=== PATIENT | male | born 1990 | race Two or more races ===

== ENCOUNTER 2018-11-10 11:52 | Emergency (ER) | payer SELFPAY ==
[~2018-11-10] VITALS: Ht 182.9 cm; Wt 72.6 kg
[2018-11-10 11:57] VITALS: BP 132/80
[2018-11-10] MEDS ORDERED: NKM (12:00)
--- NOTE | 2018-11-10 12:05 | NUR ---
ED Nurse Note: Patient walked in ED c/o right hand pain and swelling, states he hit a wall yesterday. Patient aaox4, No open wounds noted, right hand noted with immobilizer.
--- NOTE | 2018-11-10 12:25 | NUR ---
ED Nurse Note: Xray at bedside at this time.
--- NOTE | 2018-11-10 12:40 | NUR ---
ED Nurse Note: splint applied on the affected area by Yi, pipe organ technician
--- NOTE | 2018-11-10 12:42 | Emergency Room Report ---
History of Present Illness General Chief Complaint: Upper Extremity Injury Source: Patient Present Illness HPI 28-year-old male with no significant past medical history here complaining of pain and swelling of the right hand after punching a wall yesterday. Patient is rating the pain 10 out of 10 on the hypothenar aspect of his right hand without radiation. The pain is constant denies any tingling or numbness. Has not taken medication for pain. Patient has no motor or sensory deficits. Denies all other injuries, chest pain, shortness of breath, palpitation, abdominal pain, nausea vomiting. 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 Allergies: Coded Allergies: No Known Allergies (Unverified , 11/10/18) Patient History Past Medical History: see triage record Past Surgical History: unable to obtain Pertinent Family History: none Immunizations: UTD Reviewed Nursing Documentation: PMH: Agreed; PSxH: Agreed Nursing Documentation-PMH Past Medical History: No Stated History Review of Systems All Other Systems: negative except mentioned in HPI Physical Exam Vital Signs Date Time Temp Pulse Resp B/P (MAP) Pulse Ox O2 Delivery O2 Flow Rate FiO2 11/10/18 11:57 98.1 72 19 132/80 (97) 98 Room Air Sp02 EP Interpretation: reviewed, normal General Appearance: normal inspection, well appearing, no apparent distress Head: normocephalic, atraumatic Eyes: bilateral eye normal inspection, bilateral eye PERRL ENT: normal ENT inspection, normal pharynx Neck: normal inspection, supple Respiratory: normal inspection, lungs clear, no rhonchi, no wheezing Cardiovascular #1: normal inspection, regular rate, rhythm, no murmur, normal capillary refill Cardiovascular #2: 2+ radial (R), 2+ radial (L) Gastrointestinal: normal inspection, soft Rectal: deferred Musculoskeletal: back normal, swelling - Right hand on hypothenar side, tender - right fifth metacarpal Neurologic: normal inspection, alert, oriented x3 Psychiatric: normal inspection, judgement/insight normal Skin: other - eccymosis right fifth metacarpal Lymphatic: normal inspection, no adenopathy Procedures Splinting Splinting : Consent: Verbal Splint: ulnar Pre-Proc Neuro Vasc Exam: normal Post-Proc Neuro Vasc Exam: normal Patient Tolerated: Well Complications: None Medical Decision Making PA Attestation All my diagnosis and treatment plans were reviewed ad discussed with my supervising physician Dr. James Diagnostic Impression: Primary Impression: Boxers fracture ER Course 28-year-old male with no significant past medical history here complaining of pain and swelling of the right hand after punching a wall yesterday. Patient is rating the pain 10 out of 10 on the hypothenar aspect of his right hand without radiation. The pain is constant denies any tingling or numbness. Has not taken medication for pain. Patient has no motor or sensory deficits. Denies all other injuries, chest pain, shortness of breath, palpitation, abdominal pain, nausea vomiting. 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 Ddx considered but are not limited to: Hand sprain, hand sprain, hand fracture Vital signs: are WNL, pt. is afebrile H&PE are most consistent with : Right boxer's fracture ORDERS: Hand x-ray, Tylenol 3, naproxen ED INTERVENTIONS: Splinting DISCHARGE: At this time pt. is stable for d/c to home. Will provide printed patient care instructions, and any necessary prescriptions. Care plan and follow up instructions have been discussed with the patient prior to discharge. Splint was ordered, extremity was vascularly and neurovascularly intact after splint was applied. pt advised to follow up with pcp and further imaging may be needed. Follow-up with primary care provider for referral to vendor management specialist for possible casting and further assessment take medication as directed keep affected area elevated avoid strenuous physical activity Other X-Ray Diagnostic Results Other X-Ray Diagnostic Results : X-Ray ordered: Right hand # of Views/Limited Vs Complete: 3 View Indication: Pain EP Interpretation: Yes PA Xray: Interpretation reviewed, by supervising MD, and agrees with findings. Interpretation: no dislocation, other - Boxer's fracture right hand Impression: Other - Boxer's fracture right hand Electronically Signed by: Minerva Hanson PA-C Last Vital Signs Date Time Temp Pulse Resp B/P (MAP) Pulse Ox O2 Delivery O2 Flow Rate FiO2 11/10/18 11:57 98.1 72 19 132/80 98 Room Air Disposition: HOME, SELF-CARE Condition: Stable Scripts Acetaminophen With Codeine (T#3) (TYLENOL #3 TAB*) Y Tab 1 TAB ORAL Q8HR PRN for For Pain for 3 Days, #10 TAB Prov: Minerva Lemus 11/10/18 Naproxen* (NAPROXEN*) 500 Mg Tablet 500 MG ORAL TWICE A DAY, #30 TAB Prov: Minerva Lemus 11/10/18 Patient Instructions: Boxer's Fracture Additional Instructions: Take medication as directed follow-up with your primary care provider for referral to vendor management specialist avoid strenuous physical activity keep splint on Minerva Lemus Nov 10, 2018 12:42
[2018-11-10] MEDS ORDERED: NAPROXEN500 M2 ORAL (12:43)
[2018-11-10] MEDS ORDERED: ACETAMINOPHEN-1 EAC1 ORAL (12:43)
[2018-11-10 12:45] VITALS: BP 124/76
--- NOTE | 2018-11-10 12:45 | NUR ---
ER DISCHARGE NOTE: Patient is cleared to be discharged per PA, pt is aox4, on room air, with stable vital signs. pt was given dc and prescription instructions, pt was able to verbalize understanding, pt id band removed pt is able to ambulate with steady gait. pt took all belongings.
--- NOTE | 2018-11-10 13:21 | Diagnostic Imaging Report ---
Indication: Right hand pain Findings: 3 views of the right hand were obtained. There is an acute fracture of the distal fifth metacarpal. Negative exam otherwise. Impression: .Acute fracture of the distal fifth metacarpal
== END 2018-11-10 12:50 | disposition home or self-care (01) ==
LOC: EMR 12:50
DX: S62.306A Unspecified fracture of fifth metacarpal bone, right hand, initial encounter for closed fracture (principal); W22.8XXA Striking against or struck by other objects, initial encounter; Y92.9 Unspecified place or not applicable
CPT/HCPCS: 29125; 99283